=== PATIENT | male | born 1990 | race Caucasian/White ===

== ENCOUNTER 2018-11-18 16:29 | Emergency (ER) | payer OTHER ==
[2018-11-18 17:07] LABS: Absolute Lymphocytes (CBC) 1.4 K/uL (0.7-4.9); Basophils % 0.4 % (0-1.3); Hematocrit 43.7 % (39.6-49.0); Lymphocytes % 19.1 % (15.3-44.8); RBC Red Blood Cell Count 4.74 M/uL (4.33-5.43)
--- NOTE | 2018-11-18 17:15 | RAD REPORT ---
EXAM DESCRIPTION: CT - Ct Stroke Brain Wo Cont - 11/18/2018 5:07 pm CLINICAL HISTORY: Left arm numbness and weakness, stroke-like symptoms CLINICAL HISTORY: None. TECHNIQUE: Axial 5 millimeter thick images of the head were obtained without IV contrast. All CT scans are performed using dose optimization technique as appropriate and may include automated exposure control or mA/KV adjustment according to patient size. FINDINGS: No intracranial hemorrhage, mass, or cerebral edema. No acute infarction identifiable. No extra-axial fluid collections. Turner matter-white matter differentiation is preserved. Visualized portions of the mastoid air cells, paranasal sinuses, and orbits are unremarkable. Findings telephoned to the emergency department 1711 hours IMPRESSION: No CT evidence of acute intracranial process.
[2018-11-18 17:29] LABS: ALT/SGPT 30 U/L (12-78); AST/SGOT 15 U/L (15-37); Albumin 4.2 g/dL (3.4-5.0); Alkaline Phosphatase 74 U/L (45-117); BUN Blood Urea Nitrogen 21 mg/dL (7-18); Bicarbonate 26 mmol/L (21-32); Bilirubin Direct 0.1 mg/dL (0-0.2); Bilirubin Total 0.4 mg/dL (0.2-1.0); Glucose Level 161 mg/dL (74-106); Potassium 3.9 mmol/L (3.5-5.1); Protein, Total 7.9 g/dL (6.4-8.2); Sodium Level 138 mmol/L (136-145); Troponin (Emerg Dept Use Only) < 0.02 ng/mL (0.0-0.045)
--- NOTE | 2018-11-18 17:41 | RAD REPORT ---
EXAM DESCRIPTION: MRI - Brain Wo Cont - 11/18/2018 5:27 pm CLINICAL HISTORY: NUMBNESSleft arm numbness COMPARISON: CT head same date TECHNIQUE: Sagittal T1-weighted images were obtained along with axial PD, heavily T2-weighted and T2 -FLAIR images. Axial DWI and ADC mapping sequences were also obtained along with coronal heavily T2-w eighted images. FINDINGS: No intracranial hemorrhage, mass or acute infarction. There is no edema or shift of midlin e structures. No extra-axial fluid collections. Turner-matter/white matter junction is preserved. Signa l voids are seen as a normal finding in the major intracranial vessels. No globe or orbital content abnormality. No sella or supra sella abnormality. Mastoid air cells and paranasal sinuses are clear. IMPRESSION: Negative non-contrast MRI of the Brain.
--- NOTE | 2018-11-18 18:22 | RAD REPORT ---
EXAM DESCRIPTION: RAD - Chest Single View - 11/18/2018 5:39 pm CLINICAL HISTORY: Stroke protocol chest film, left shoulder and arm numbness COMPARISON: None. TECHNIQUE: AP portable chest image was obtained 1734 hours . FINDINGS: Lungs are clear. Heart and vasculature are normal. No measurable pleural effusion and no p neumothorax. No acute bony abnormality seen. No acute aortic findings suspected. IMPRESSION: No acute cardiopulmonary process.
--- NOTE | 2018-11-18 18:33 | ER ---
Nurse's Notes [facility] Name: Daren Munoz Age: 28 yrs Sex: Male : 1990 Arrival Date: 11/18/2018 Time: 16:38 Bed 26 Private MD: Diagnosis: Paresthesia of skin Presentation: 11/18 16:39 Presenting complaint: EMS states: He started having numbness of his left arm while he aj1 was sitting at his desk, when he got up it lessened to just his fingers, but when he sat down again the numbness returned to his whole arm, so he decided to go for a walk, then he started to have palpitations and feel light headed so he returned to his office and notified his coworkers that he was not feeling well. Denies CP, denies SOB. Transition of care: patient was not received from another setting of care. Onset of symptoms was November 18, 2018 at 16:00. Risk Assessment: Do you want to hurt yourself or someone else? Patient reports no desire to harm self or others. Initial Sepsis Screen: Does the patient meet any 2 criteria? No. Patient's initial sepsis screen is negative. Does the patient have a suspected source of infection? No. Patient's initial sepsis screen is negative. Care prior to arrival: None. 16:39 Method Of Arrival: EMS: [facility] aj 16:39 Acuity: BECKI 3 aj1 Triage Assessment: 16:43 General: Appears in no apparent distress. comfortable, Behavior is calm, cooperative, aj1 appropriate for age. Pain: Denies pain. Historical: - Allergies: 16:43 No Known Allergies; aj1 - Home Meds: 16:43 OTC allergy medications [Active]; aj1 - PMHx: 16:43 None; aj1 - PSHx: 16:43 None; aj1 - Immunization history:: Flu vaccine is not up to date. - Social history:: Smoking status: Patient/guardian denies using tobacco. - Ebola Screening: : Patient denies travel to an Ebola-affected area in the 21 days before illness onset. Screenin:47 Abuse screen: Denies threats or abuse. Denies injuries from another. Nutritional aj1 screening: No deficits noted. Tuberculosis screening: No symptoms or risk factors identified. 18:36 Patient has been NPO before screening. The patient is alert, able to follow commands. ca1 The patient does not exhibit slurred or garbled speech The patient is not exhibiting difficulty speaking. The patient does not exhibit difficulty understanding words. The patient is able to swallow own secretions with no drooling or need for suction. Patient tolerated one teaspoon of water. No drooling, immediate coughing, gurgling, or clearing of the throat was noted. The patient tolerated 90mL of water. No drooling, immediate coughing, gurgling, or clearing of the throat was noted. The patient passed the bedside swallow screening. Oral medications may be given as ordered. Contact Physician for further diet orders. Fall Risk IV access (20 points). Assessment: 16:47 General: Appears in no apparent distress. comfortable, Behavior is calm, cooperative, aj1 appropriate for age. Pain: Denies pain. Neuro: Level of Consciousness is awake, alert, obeys commands, Oriented to person, place, time, situation, Contracts Director are equal bilaterally Moves all extremities. Full function Speech is normal, Facial symmetry appears normal, Reports numbness in left arm. Cardiovascular: Denies chest pain, Heart tones S1 S2 present Patient's skin is warm and dry. Rhythm is sinus rhythm. Respiratory: Airway is patent Respiratory effort is even, unlabored, Respiratory pattern is regular, symmetrical, Breath sounds are clear bilaterally. GI: No signs and/or symptoms were reported involving the gastrointestinal system. : No signs and/or symptoms were reported regarding the genitourinary system. EENT: No signs and/or symptoms were reported regarding the EENT system. Derm: No signs and/or symptoms reported regarding the dermatologic system. Skin is pink, warm \T\ dry. normal. Musculoskeletal: No signs and/or symptoms reported regarding the musculoskeletal system. Circulation, motion, and sensation intact. 17:45 Reassessment: Patient appears in no apparent distress at this time. No changes from aj1 previously documented assessment. Patient and/or family updated on plan of care and expected duration. Pain level reassessed. Patient is alert, oriented x 3, equal unlabored respirations, skin warm/dry/pink. 18:31 Reassessment: Patient appears in no apparent distress at this time. No changes from aj1 previously documented assessment. Patient and/or family updated on plan of care and expected duration. Pain level reassessed. Patient is alert, oriented x 3, equal unlabored respirations, skin warm/dry/pink. Vital Signs: 16:43 BP 125 / 87; Pulse 68; Resp 16; Temp 97.9; Pulse Ox 100% on R/A; Weight 72.57 kg (R); aj1 Height 5 ft. 7 in. (170.18 cm) (R); Pain 0/10; 17:45 BP 122 / 75; Pulse 68; Resp 18; Pulse Ox 99% on R/A; aj1 18:38 BP 114 / 81; Pulse 60; Resp 15; Pulse Ox 98% on R/A; ca1 16:43 Body Mass Index 25.06 (72.57 kg, 170.18 cm) aj1 NIH Stroke Scale Scores: 17:00 NIHSS Score: 0 ca1 17:00 NIHSS Score: 0 pm1 ED Course: 16:38 Patient arrived in ED. aj1 16:39 Steven Rachel NP is PHCP. pm1 16:39 Uli Guardado MD is Attending Physician. pm1 16:41 Triage completed. aj1 16:43 Arm band placed on. aj1 16:47 Patient has correct armband on for positive identification. aj1 16:47 No provider procedures requiring assistance completed. aj1 16:55 EKG done, by manufacturing engineering technician. reviewed by Steven Rachel NP. sm3 16:59 Felicitas Gamino, PATSY is Primary Nurse. aj1 17:00 Inserted saline lock: 20 gauge in right antecubital area, using aseptic technique. ca1 Blood collected. 17:26 MRI - Brain Wo Cont In Process Unspecified. EDMS 17:41 Stroke CXR 1 View In Process Unspecified. EDMS 18:44 IV discontinued, intact, bleeding controlled, No redness/swelling at site. Pressure ca1 dressing applied. Administered Medications: No medications were administered Point of Care Testing: Blood Glucose: 16:58 Blood Glucose: 174 mg/dL; ca1 Ranges: Outcome: 18:32 Discharge ordered by . pm1 18:44 Discharged to home ambulatory, with significant other. ca1 18:44 Condition: stable 18:44 Discharge instructions given to patient, Instructed on discharge instructions, follow up and referral plans. Demonstrated understanding of instructions, follow-up care. 18:45 Patient left the ED. ca1 NIH Stroke Scale - NIH Stroke Score Date: 11/18/2018 Time: 17:00 Total Score = 0 1a. Level of Consciousness (LOC) - 0(Alert) 1b. Level of Consciousness (LOC) (Year \T\ Age) - 0(Both) 1c. LOC Commands (Open \T\ Closes Eyes/News Broadcaster) - 0(Both) 2. Best Gaze (Lateral Gaze Paresis) - 0(Normal) 3. Visual Field Loss - 0(No visual loss) 4. Facial Palsy - 0(Normal) 5a. Left Arm: Motor (10-second hold) - 0(No drift) 5b. Right Arm: Motor (10-second hold) - 0(No drift) 6a. Left Leg: Motor (5-second hold - always test supine) - 0(No drift) 6b. Right Leg: Motor (5-second hold - always test supine) - 0(No drift) 7. Limb Ataxia (finger/nose \T\ heel/page - test with eyes open) - 0(Absent) 8. Sensory Loss (pinprick arms/legs/face) - 0(Normal) 9. Best Language: Aphasia (description/naming/reading) - 0(No aphasia) 10. Dysarthria (speech clarity - read or repeat words) - 0(Normal) 11. Extinction and Inattention (visual/tactile/auditory/spatial/personal) - 0(No abnormality) Initials: ca1 NIH Stroke Scale - NIH Stroke Score Date: 11/18/2018 Time: 17:00 Total Score = 0 1a. Level of Consciousness (LOC) - 0(Alert) 1b. Level of Consciousness (LOC) (Year \T\ Age) - 0(Both) 1c. LOC Commands (Open \T\ Closes Eyes/News Broadcaster) - 0(Both) 2. Best Gaze (Lateral Gaze Paresis) - 0(Normal) 3. Visual Field Loss - 0(No visual loss) 4. Facial Palsy - 0(Normal) 5a. Left Arm: Motor (10-second hold) - 0(No drift) 5b. Right Arm: Motor (10-second hold) - 0(No drift) 6a. Left Leg: Motor (5-second hold - always test supine) - 0(No drift) 6b. Right Leg: Motor (5-second hold - always test supine) - 0(No drift) 7. Limb Ataxia (finger/nose \T\ heel/page - test with eyes open) - 0(Absent) 8. Sensory Loss (pinprick arms/legs/face) - 0(Normal) 9. Best Language: Aphasia (description/naming/reading) - 0(No aphasia) 10. Dysarthria (speech clarity - read or repeat words) - 0(Normal) 11. Extinction and Inattention (visual/tactile/auditory/spatial/personal) - 0(No abnormality) Initials: pm1 Signatures: Dispatcher [employer] EDFelicitas Le, RN RN aj1 Steven Rachel, JESSICA MINE EXPLORATION ENGINEER pm1 Janeth Dumont sm3 Argenis Bryan RN RN ca1
--- NOTE | 2018-11-18 18:34 | EDPHYS ---
Physician Documentation [facility] Name: Daren Munoz Age: 28 yrs Sex: Male : 1990 Arrival Date: 11/18/2018 Time: 16:38 Bed 26 Private MD: ED Physician Uli Guardado HPI: 11/18 17:00 This 28 yrs old Male presents to ER via EMS with complaints of Numbness Of pm1 Left Arm. 17:00 The patient or guardian complains of Numbness of left arm. The complaints affect the pm1 left arm. Context: The problem was sustained at work, resulted from unknown cause. Onset: The symptoms/episode began/occurred just prior to arrival, 45 minute(s) ago. Treatment prior to arrival includes: no previous treatment. Modifying factors: The symptoms are alleviated by self resolved. the symptoms are aggravated by nothing. Associated signs and symptoms: Pertinent negatives: fever, pain, swelling, headache, chest pain, shortness of breath, neck pain. Severity of symptoms: in the emergency department the symptoms have improved, markedly, reports some numbness to tip of left middle and ring finger. The patient has not experienced similar symptoms in the past. The patient has not recently seen a physician. Historical: - Allergies: 16:43 No Known Allergies; aj1 - Home Meds: 16:43 OTC allergy medications [Active]; aj1 - PMHx: 16:43 None; aj1 - PSHx: 16:43 None; aj1 - Immunization history:: Flu vaccine is not up to date. - Social history:: Smoking status: Patient/guardian denies using tobacco. - Ebola Screening: : Patient denies travel to an Ebola-affected area in the 21 days before illness onset. ROS: 17:00 Constitutional: Negative for fever, chills, and weight loss, Eyes: Negative for injury, pm1 pain, redness, and discharge, ENT: Negative for injury, pain, and discharge, Neck: Negative for injury, pain, and swelling, Cardiovascular: Negative for chest pain, palpitations, and edema, Respiratory: Negative for shortness of breath, cough, wheezing, and pleuritic chest pain, Abdomen/GI: Negative for abdominal pain, nausea, vomiting, diarrhea, and constipation, Back: Negative for injury and pain, MS/Extremity: Negative for injury and deformity, Skin: Negative for injury, rash, and discoloration. 17:00 Neuro: Positive for numbness, of the left arm, Negative for dizziness, headache, weakness. Exam: 17:00 Constitutional: This is a well developed, well nourished patient who is awake, alert, pm1 and in no acute distress. Head/Face: Normocephalic, atraumatic. Eyes: Pupils equal round and reactive to light, extra-ocular motions intact. Lids and lashes normal. Conjunctiva and sclera are non-icteric and not injected. Cornea within normal limits. Periorbital areas with no swelling, redness, or edema. ENT: Nares patent. No nasal discharge, no septal abnormalities noted. Tympanic membranes are normal and external auditory canals are clear. Oropharynx with no redness, swelling, or masses, exudates, or evidence of obstruction, uvula midline. Mucous membranes moist. Neck: Trachea midline, no thyromegaly or masses palpated, and no cervical lymphadenopathy. Supple, full range of motion without nuchal rigidity, or vertebral point tenderness. No Meningismus. Chest/axilla: Normal chest wall appearance and motion. Nontender with no deformity. No lesions are appreciated. Cardiovascular: Regular rate and rhythm with a normal S1 and S2. No gallops, murmurs, or rubs. Normal PMI, no JVD. No pulse deficits. Respiratory: Lungs have equal breath sounds bilaterally, clear to auscultation and percussion. No rales, rhonchi or wheezes noted. No increased work of breathing, no retractions or nasal flaring. Abdomen/GI: Soft, non-tender, with normal bowel sounds. No distension or tympany. No guarding or rebound. No evidence of tenderness throughout. Back: No spinal tenderness. No costovertebral tenderness. Full range of motion. Skin: Warm, dry with normal turgor. Normal color with no rashes, no lesions, and no evidence of cellulitis. MS/ Extremity: Pulses equal, no cyanosis. Neurovascular intact. Full, normal range of motion. Neuro: Awake and alert, GCS 15, oriented to person, place, time, and situation. Cranial nerves II-XII grossly intact. Motor strength 5/5 in all extremities. Sensory grossly intact. Cerebellar exam normal Vital Signs: 16:43 BP 125 / 87; Pulse 68; Resp 16; Temp 97.9; Pulse Ox 100% on R/A; Weight 72.57 kg (R); aj1 Height 5 ft. 7 in. (170.18 cm) (R); Pain 0/10; 17:45 BP 122 / 75; Pulse 68; Resp 18; Pulse Ox 99% on R/A; aj1 18:38 BP 114 / 81; Pulse 60; Resp 15; Pulse Ox 98% on R/A; ca1 16:43 Body Mass Index 25.06 (72.57 kg, 170.18 cm) aj1 NIH Stroke Scale Scores: 17:00 NIHSS Score: 0 ca1 17:00 NIHSS Score: 0 pm1 MDM: 16:41 Patient medically screened. pm1 17:11 ED course: CT head negative per Dr. Boston. . rn 18:31 Data reviewed: vital signs. Data interpreted: Pulse oximetry: on room air is 100 %. pm1 Interpretation: normal. Counseling: I had a detailed discussion with the patient and/or guardian regarding: the historical points, exam findings, and any diagnostic results supporting the discharge/admit diagnosis, lab results, radiology results, the need for outpatient follow up, to return to the emergency department if symptoms worsen or persist or if there are any questions or concerns that arise at home. 11/18 16:41 Order name: Hepatic Function; Complete Time: 17:41 pm1 11/18 16:41 Order name: Troponin (emerg Dept Use Only); Complete Time: 17:41 pm1 11/18 16:41 Order name: Basic Metabolic Panel; Complete Time: 17:41 pm1 11/18 16:41 Order name: CBC with Diff pm1 11/18 16:41 Order name: Protime (+inr); Complete Time: 17:41 pm1 11/18 16:41 Order name: Ptt, Activated; Complete Time: 17:41 pm1 11/18 16:41 Order name: MRI - Brain Wo Cont; Complete Time: 18:23 pm1 11/18 16:41 Order name: CT Stroke Brain w/o Contrast pm1 11/18 16:41 Order name: Stroke CXR 1 View pm1 11/18 16:41 Order name: EKG; Complete Time: 16:58 pm1 11/18 16:41 Order name: Accucheck; Complete Time: 17:02 pm1 11/18 17:05 Order name: Glucose, Ancillary Testing; Complete Time: 17:09 EDMS 11/18 17:09 Order name: CBC with Automated Diff EDMS 11/18 18:19 Order name: CT; Complete Time: 18:23 EDMS 11/18 16:41 Order name: Cardiac monitoring; Complete Time: 16:59 pm1 11/18 16:41 Order name: EKG - Nurse/Tech; Complete Time: 16:59 pm1 11/18 16:41 Order name: IV Saline Lock; Complete Time: 17:00 pm1 11/18 16:41 Order name: Labs collected and sent; Complete Time: 17:02 pm1 11/18 16:41 Order name: NPO; Complete Time: 17:00 pm1 11/18 16:41 Order name: O2 Per Protocol; Complete Time: 17:00 pm1 11/18 16:41 Order name: O2 Sat Monitoring; Complete Time: 17:00 pm1 11/18 16:41 Order name: Stroke Swallow Screen; Complete Time: 18:35 pm1 Administered Medications: No medications were administered Point of Care Testing: Blood Glucose: 16:58 Blood Glucose: 174 mg/dL; ca1 Ranges: Critical Glucose Levels:Adult <50 mg/dl or >400 mg/dl <40 mg/dl or >180 mg/dl Disposition: 18:57 Co-signature as Attending Physician, Uli Guardado MD. rn Disposition: 11/18/18 18:32 Discharged to Home. Impression: Paresthesia of skin. - Condition is Stable. - Discharge Instructions: Paresthesia. - Medication Reconciliation Form, Thank You Letter, Antibiotic Education, Prescription Opioid Use form. - Follow up: Emergency Department; When: As needed; Reason: Worsening of condition. Follow up: Private Physician; When: 2 - 3 days; Reason: Recheck today's complaints, Continuance of care, Re-evaluation by your physician. - Problem is new. - Symptoms have improved. NIH Stroke Scale - NIH Stroke Score Date: 11/18/2018 Time: 17:00 Total Score = 0 1a. Level of Consciousness (LOC) - 0(Alert) 1b. Level of Consciousness (LOC) (Year \T\ Age) - 0(Both) 1c. LOC Commands (Open \T\ Closes Eyes/Rotor Blade Installer) - 0(Both) 2. Best Gaze (Lateral Gaze Paresis) - 0(Normal) 3. Visual Field Loss - 0(No visual loss) 4. Facial Palsy - 0(Normal) 5a. Left Arm: Motor (10-second hold) - 0(No drift) 5b. Right Arm: Motor (10-second hold) - 0(No drift) 6a. Left Leg: Motor (5-second hold - always test supine) - 0(No drift) 6b. Right Leg: Motor (5-second hold - always test supine) - 0(No drift) 7. Limb Ataxia (finger/nose \T\ heel/page - test with eyes open) - 0(Absent) 8. Sensory Loss (pinprick arms/legs/face) - 0(Normal) 9. Best Language: Aphasia (description/naming/reading) - 0(No aphasia) 10. Dysarthria (speech clarity - read or repeat words) - 0(Normal) 11. Extinction and Inattention (visual/tactile/auditory/spatial/personal) - 0(No abnormality) Initials: ca1 NIH Stroke Scale - NIH Stroke Score Date: 11/18/2018 Time: 17:00 Total Score = 0 1a. Level of Consciousness (LOC) - 0(Alert) 1b. Level of Consciousness (LOC) (Year \T\ Age) - 0(Both) 1c. LOC Commands (Open \T\ Closes Eyes/Rotor Blade Installer) - 0(Both) 2. Best Gaze (Lateral Gaze Paresis) - 0(Normal) 3. Visual Field Loss - 0(No visual loss) 4. Facial Palsy - 0(Normal) 5a. Left Arm: Motor (10-second hold) - 0(No drift) 5b. Right Arm: Motor (10-second hold) - 0(No drift) 6a. Left Leg: Motor (5-second hold - always test supine) - 0(No drift) 6b. Right Leg: Motor (5-second hold - always test supine) - 0(No drift) 7. Limb Ataxia (finger/nose \T\ heel/page - test with eyes open) - 0(Absent) 8. Sensory Loss (pinprick arms/legs/face) - 0(Normal) 9. Best Language: Aphasia (description/naming/reading) - 0(No aphasia) 10. Dysarthria (speech clarity - read or repeat words) - 0(Normal) 11. Extinction and Inattention (visual/tactile/auditory/spatial/personal) - 0(No abnormality) Initials: pm1 Signatures: Dispatcher [employer] EDFelicitas Le RN RN aj1 Uli Guardado MD MD rn Marinas, Patrick, JESSICA ASSAYER HELPER pm1 Argenis Bryan RN RN ca1 Corrections: (The following items were deleted from the chart) 18:45 18:32 11/18/2018 18:32 Discharged to Home. Impression: Paresthesia of skin. ca1 Condition is Stable. Forms are Medication Reconciliation Form, Thank You Letter, Antibiotic Education, Prescription Opioid Use. Follow up: Emergency Department; When: As needed; Reason: Worsening of condition. Follow up: Private Physician; When: 2 - 3 days; Reason: Recheck today's complaints, Continuance of care, Re-evaluation by your physician. Problem is new. Symptoms have improved. pm1
[2018-11-18 21:13] VITALS: TEMP 97.9
[2018-11-18 21:16] VITALS: BP 114/81; O2SAT 98
--- NOTE | 2018-11-19 10:38 | EKG ---
Test Date: 2018-11-18 Test Time: 16:51:37 Uniform Force Captain: AYANA MEASUREMENT RESULTS: Intervals: Rate: 56 SD: 154 QRSD: 94 QT: 412 QTc: 397 [place]: P: 48 SD: 154 QRS: 49 T: 4 INTERPRETIVE STATEMENTS: Sinus bradycardia Nonspecific T wave abnormality Abnormal ECG No previous ECG available for comparison Electronically Signed On 11-19-18 10:36:47 CDT by Royal Resendez
== END 2018-11-18 18:45 | disposition home or self-care (01) ==
LOC: ER 16:29
DX: R20.2 Paresthesia of skin (principal)
CPT/HCPCS: 36415; 70450; 70551; 71045; 80048; 80076; 82962; 84484; 85025; 85610; 85730; 93005; 99284